=== PATIENT | male | born 1985 | race Caucasian/White ===

== ENCOUNTER 2019-10-03 02:31 | Day surgery (SDC) | payer BC, SELFPAY ==
[2019-09-30 15:56] VITALS: BMI 41.8
[2019-10-03] VITALS (7 sets, daily range): BP systolic 96–150; BP diastolic 82–91; PULSE 88–113; RESP 15–22; TEMP 36.6–36.8; O2SAT 94–100
--- NOTE | ~2019-10-03 | CT_ITS ---
EXAMINATION: CT abdomen pelvis wo con DATE: 10/03/2019 08:46 INDICATION: Right flank pain. Right ureteral calculus. Preoperative evaluation for lithotripsy. TECHNIQUE: Computed tomography (CT) of the abdomen and pelvis was performed without intravenous contr ast. Automated exposure control and iterative reconstruction technique were employed. Exam dose: 116 3.84 mGy-cm total exam DLP. 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 The lung bases are clear. Normal heart size. No pericardial or pleural effusion. The gallbladder is present. No bile duct or pancreatic duct dilatation. There is hepatic steatosis. No hepatic, splenic, pancreatic, adrenal or renal space-occupying mass le kaiden is evident on this limited noncontrast examination. There are several nonobstructing right renal calculi, the largest approximately 4.5 mm. There is an approximately 6.4 mm calculus of the distal right ureter with associated moderate right h ydroureteronephrosis, mild perinephric and periureteral stranding. There is a 2.8 mm lower pole left renal calculus. The urinary bladder wall appears diffusely mildly thickened. Minimal prostate calcification. There is normal caliber of the abdominal aorta. No intraperitoneal or retroperitoneal or pelvic mass lesion or adenopathy or ascites. Normal appendix. No bowel obstruction or intraperitoneal free air. Included skeletal structures are unremarkable. Fat-containing umbilical hernia. IMPRESSION: 6.4 mm distal right ureteral obstructing calculus with moderate right hydroureteronephro sis Bilateral nonobstructive nephrolithiasis Hepatic steatosis Reviewed, dictated and finalized at [facility]. Reviewed, dictated and finalized at [facility]. OLOGY PROFESSOR IMPRESSION: 6.4 mm distal right ureteral obstructing calculus with moderate ri ght hydroureteronephrosis Bilateral nonobstructive nephrolithiasis Hepatic steatosis
--- NOTE | ~2019-10-03 | XR_ITS ---
EXAMINATION: XR abdomen/kub 1V DATE: 10/03/2019 07:48 INDICATION: Right renal stone. TECHNIQUE: A supine view of the abdomen on 2 radiographs was obtained. COMPARISON: None. FINDINGS: There are 4 mm and 5 mm calcifications in right pelvis. There are 3 calcifications in left pelvis measuring up to 4 mm. There are dilated loops of small bowel. The colon is normal in caliber. IMPRESSION: 1. Calcifications in the pelvis, which may be phleboliths and/or ureteral stones. 2. Dilated small bowel, likely adynamic ileus. Reviewed, dictated and finalized at [facility]. T WRAPPER IMPRESSION: 1. Calcifications in the pelvis, which may be phleboliths and/or ureteral stone s. 2. Dilated small bowel, likely adynamic ileus.
--- NOTE | 2019-10-03 08:39 | SUR.PREOP ---
0830- DR. WALLACE STATED PT NEEDS TO GO TO CT BEFORE SURGERY. ORDERED PLACED. 0839- PT TO CT PER WHEELCHAIR.
--- NOTE | 2019-10-03 09:08 | WPDANESEPPF ---
Anes - Initial Pre Proc Eval Procedure: Operation Date: 10/03/19 09:30 Proposed Procedures p Cystoscopy, Right Retrograde Pyelogram, Right Ureteroscopy,Right Stone Extraction, Right Ureteral Extracorporeal Shock Wave Lithotripsy, - Jean Marie Hurst MD s Possible Holmium Laser Procedure,Possible Right Stent Placement - Jean Marie Hurst MD Date/Time: 10/03/19 09:08 Surgeon: Jean Marie Hurst MD Pre Op Diagnosis: Right Kidney Stones Patient Data Age: 34 Gender: M Height: 5 ft 11 in Weight: 138.7 kg Last Vital Signs Temp 36.6 C 10/03/19 09:03 Pulse 113 H 10/03/19 09:03 Resp 20 10/03/19 09:03 BP 149/86 H 10/03/19 09:03 Pulse Ox 98 10/03/19 09:03 Allergies Allergy/AdvReac Type Severity Reaction Status Date / Time No Known Allergies Allergy Verified 09/30/19 15:58 Home Medications Medication Instructions Recorded Confirmed Type hydrocodone-acetaminophen 1 tablet PO DIRECTED PRN 09/30/19 10/03/19 History tamsulosin 0.4 mg PO DAILY 09/30/19 10/03/19 History Patient hx anesthesia problems: none Family hx anesthesia problems: none Anes - Eval Final PreProcedure Day of Procedure 10/03/19 09:08 Patient weight: morbidly obese Heart: regular rate and rhythm Lungs: clear to auscultation Airway: Mallampati scale class II Neurological: alert and oriented Last oral intake: >/= 8 hours ASA classification: III Emergent: no Anesthetic plan: proceed Anesthesia type and monitoring: general LMA and standard monitoring Informed Consent: The patient's anesthetic plan and its attendant risks and benefits were discussed with the patient/family/POA. Questions were solicited and answers provided to the satisfaction of the patient/family/POA.
[2019-10-03] MEDS: LACTATED RINGERS 1,000 ML 30 ML IV CONT ×2 (09:23→10:47)
--- NOTE | 2019-10-03 09:34 | WPDHPUPDATE1 ---
History and Physical Update Update Date/Time: 10/03/19 09:34 History and Physical has been reviewed, including an updated exam of the patient. There are NO changes in the patient's condition. Risks, benefits, and alternatives have been discussed and questions answered. Patient agrees to proceed with procedure.
[2019-10-03] MEDS: ceFAZolin SODIUM 1 GM VIAL 3 GM IV PUSH (10:07)
--- NOTE | 2019-10-03 10:37 | PM.PROC ---
Procedure Note - Detailed Date of procedure: 10/03/19 Pre-op diagnosis: Right Kidney Stones Right distal ureteral calculus 5 mm Procedure performed: Lithotripsy of distal right ureteral calculus Description of procedure: Patient is taken to the operative suite and correctly identified. Once general anesthesia was obtained he was placed in the supine position and the stone was located in both planes. Three thousand shocks were given to the stone. Patient tolerated procedure well without any complications and was taken recovery room stable condition. He will follow up with Dr. Herman in 7-10 days with a KUB. Anesthesia: GLMA Surgeon: Jean Marie Hurst MD Drains: No Packing: No Pathology: none sent Complications: No immediate complications Condition: stable Disposition: PACU
== END 2019-10-03 12:33 | disposition home or self-care (01) ==
PROVIDERS: Visit Provider Urology
PROC: (CPT 50590; principal; 2019-10-03 09:30)
DX: N20.1 Calculus of ureter (principal); E66.01 Morbid (severe) obesity due to excess calories; Z68.41 Body mass index [BMI] 40.0-44.9, adult
CPT/HCPCS: 50590; 74018; 74176; J0690; J1100; J2250; J2405; J2704; J3010; J7120